=== PATIENT | male | born 1980 | race Caucasian/White ===

== ENCOUNTER → 2017-03-25 | Outpatient (CLI) | payer MEDICAID, OTHER ==
--- NOTE | 2017-03-25 09:54 | REP ---
LUMBAR SPINE, FIVE VIEWS: HISTORY: Back pain. There is no acute fracture or subluxation. The L2-3 through L5-S1 intervertebral discs are decreased in height consistent with disc degeneration. Osteophytes are present on L2-4. The facet joints are normal in appearance. IMPRESSION: Degenerative change as described above. Signed by Aly Eaton MD 03/25/2017 10:04 A
== END ==
LOC: M RAD 07:58
PROVIDERS: ATTEND Physician Assistant Medical
DX: M54.5 Low back pain (principal)

== ENCOUNTER 2022-02-15 14:44 | Emergency (ER) | payer OTHER ==
[~2022-02-15] VITALS: Ht 182.9 cm; Wt 87.0 kg
[2022-02-15 16:22] VITALS: BP 165/104
[2022-02-15] MEDS ORDERED: BOOSTRIX/ADACEL VACCINE (DIPHTH/PERTUSS/ACELL/TETANUS) 0.5ML SYR IM ONE (17:25)
[2022-02-15] MEDS ORDERED: NORCO, ANEXSIA 5/325MG TABLET (HYDROcodone/ACETAMINOPHEN) PO ONE (17:40)
== END 2022-02-15 18:25 | disposition home or self-care (01) ==
LOC: M ED 14:44
DX: S40.211A Abrasion of right shoulder, initial encounter (principal); S40.212A Abrasion of left shoulder, initial encounter; M79.672 Pain in left foot; S50.812A Abrasion of left forearm, initial encounter; S80.212A Abrasion, left knee, initial encounter; V29.9XXA Motorcycle rider (driver) (passenger) injured in unspecified traffic accident, initial encounter; I10 Essential (primary) hypertension; Z23 Encounter for immunization

== ENCOUNTER 2022-07-15 21:59 | Emergency (ER) | payer OTHER ==
[~2022-07-15] VITALS: Ht 182.9 cm; Wt 91.3 kg
[2022-07-15] MEDS ORDERED: ISOVUE-370 76% 100ML VIAL As Ordered ONE (22:18)
[2022-07-15 22:34] LABS: BASO % 0.3 % (0.0-1.0); EOS # 0.2 10^3/uL (0.0-0.5); EOS % 1.4 % (0.0-3.0); HEMATOCRIT 44.7 % (42.0-52.0); HEMOGLOBIN 14.9 g/dl (13.5-17.5); LYMPH # 1.5 10^3/uL (1.5-5.0); LYMPH % 11.6 % (24.0-44.0); MEAN CORPUSCULAR HEMOGLOBIN 27.8 pg (27.0-33.0); MEAN CORPUSCULAR HGB CONC 33.3 g/dl (32.0-36.5); MEAN CORPUSCULAR VOLUME 83.4 fl (80.0-96.0); MONO # 0.6 10^3/uL (0.0-0.8); MONO % 4.9 % (2.0-8.0); NEUTROPHILS # 10.6 10^3/uL (1.5-8.5); NEUTROPHILS % 80.8 % (36.0-66.0); PLATELET COUNT, AUTOMATED 210 10^3/uL (150-450); RED BLOOD COUNT 5.36 10^6/uL (4.30-6.10); WHITE BLOOD COUNT 13.2 10^3/uL (4.0-10.0)
[2022-07-15 22:45] LABS: INR 1.05; PROTHROMBIN TIME 13.9 SECONDS (12.5-14.5)
[2022-07-15 23:04] LABS: CK-MB VALUE MASS 2.3 NG/ML (<3.6); ETHYL ALCOHOL (ETHANOL) 0.004 % (0.000-0.010); LIPASE 28 U/L (12-53)
[2022-07-15 23:05] LABS: RSV AMPLIFICATION NEGATIVE (NEGATIVE)
[2022-07-15 23:06] LABS: ALBUMIN 3.5 G/DL (3.2-5.2); ALKALINE PHOSPHATASE 84 U/L (46-116); ALT/SGPT 36 U/L (7.0-40); AMYLASE 39 U/L (30-118); AST/SGOT 33 U/L (<34); BILIRUBIN,DIRECT < 0.1 MG/DL (<0.4); BILIRUBIN,TOTAL 0.3 MG/DL (0.3-1.2); BLOOD UREA NITROGEN 16 MG/DL (9-23); CALCIUM LEVEL 9.1 MG/DL (8.5-10.1); CARBON DIOXIDE LEVEL 30 MMOL/L (20-31); CHLORIDE LEVEL 105 MMOL/L (98-107); CREATININE FOR GFR 1.05 MG/DL (0.70-1.30); GLOMERULAR FILTRATION RATE > 60.0 (>60); GLUCOSE, FASTING 103 MG/DL (60-100); POTASSIUM SERUM 3.9 MMOL/L (3.5-5.1); SODIUM LEVEL 142 MMOL/L (136-145); TOTAL PROTEIN 6.1 G/DL (5.7-8.2)
[2022-07-15 23:20] LABS: CPK CREATINE PHOSPHOKINASE 150 U/L (46-171); MB/CK RELATIVE INDEX 1.53 (< OR =4)
[2022-07-15] MEDS ORDERED: DERMABOND TOPICAL SKIN ADHESIVE TOP ONE (23:55)
[2022-07-15] MEDS ORDERED: KETOROLAC 30 MG/ML 1ML VIAL IV ONE (23:55)
[2022-07-16 00:17] LABS: APPEARANCE, URINE MANUAL CLEAR (CLEAR); BILIRUBIN, URINE MANUAL NEGATIVE (NEGATIVE); BLOOD URINE MANUAL TRACE (NEGATIVE); COLOR, URINE MANUAL YELLOW (YELLOW); GLUCOSE, URINE (UA) MANUAL NEGATIVE (NEGATIVE); KETONE, URINE MANUAL NEGATIVE (NEGATIVE); LEUKOCYTE ESTERASE, URINE MAN NEGATIVE (NEGATIVE); NITRITE, URINE MANUAL NEGATIVE (NEGATIVE); PH,URINE MAN 5.5 UNITS (5.0 - 7.0); PROTEIN, URINE MANUAL NEGATIVE (NEGATIVE); SPECIFIC GRAVITY,URINE MANUAL 1.025 (1.002-1.035); UROBILINOGEN, URINE MANUAL NORMAL (NORMAL)
[2022-07-16 00:28] LABS: RBC, URINE 15-20 /hpf (0-3); SQUAMOUS EPITHELIAL CELL URINE SMALL AMOUNT /hpf (SMALL AMT)
[2022-07-16 00:29] LABS: BACTERIA, URINE SMALL AMOUNT; HYALINE CAST, URINE 0-1 /lpf (0-1)
[2022-07-16 00:37] LABS: BARBITURATES URINE NEGATIVE (NEGATIVE); BENZODIAZEPINES URINE NEGATIVE (NEGATIVE); COCAINE METABOLITE URINE NEGATIVE (NEGATIVE); METHADONE URINE NEGATIVE (NEGATIVE); OPIATES URINE NEGATIVE (NEGATIVE); PHENCYCLIDINE URINE NEGATIVE (NEGATIVE)
[2022-07-16 00:38] LABS: AMPHETAMINES LEVEL URINE POSITIVE (NEGATIVE); CANNABINOIDS URINE POSITIVE (NEGATIVE)
[2022-07-16 01:45] VITALS: BP 150/88
[2022-07-16] MEDS ORDERED: KETO10TAB PO (01:55)
[2022-07-16] MEDS ORDERED: METH-1164 PO (01:55)
== END 2022-07-16 02:24 | disposition home or self-care (01) ==
LOC: EDBD 21:59 → M ED 21:59
DX: S06.0X0A Concussion without loss of consciousness, initial encounter (principal); S01.81XA Laceration without foreign body of other part of head, initial encounter; V48.0XXA Car driver injured in noncollision transport accident in nontraffic accident, initial encounter; I10 Essential (primary) hypertension; Z79.899 Other long term (current) drug therapy

== ENCOUNTER 2022-11-17 11:27 | Emergency (ER) | payer OTHER ==
[~2022-11-17] VITALS: Ht 182.9 cm; Wt 98.4 kg
[~2022-11-17 11:27] MED LIST: KETO10TAB PO; METH-1164 PO
[2022-11-17 14:48] VITALS: BP 174/110
[2022-11-17 15:23] LABS: GC DNA AMPLIFICATION NEGATIVE (NEGATIVE)
== END 2022-11-17 14:50 | disposition home or self-care (01) ==
LOC: M ED 11:27
DX: K40.31 Unilateral inguinal hernia, with obstruction, without gangrene, recurrent (principal); N50.812 Left testicular pain; I10 Essential (primary) hypertension; F17.200 Nicotine dependence, unspecified, uncomplicated

== ENCOUNTER → 2023-01-01 | Outpatient (REF) | payer OTHER ==
[2023-01-01 14:49] LABS: AMORPHOUS SEDIMENT MODERATE (NEGATIVE); APPEARANCE, URINE CLOUDY (CLEAR); BACTERIA, URINE AUTO NEGATIVE (NEGATIVE); BILIRUBIN, URINE AUTO NEGATIVE (NEGATIVE); BLOOD, URINE BLOOD NEGATIVE (NEGATIVE); COLOR, URINE YELLOW (YELLOW); GLUCOSE, URINE (UA) AUTO NEGATIVE (NEGATIVE); KETONE, URINE AUTO NEGATIVE (NEGATIVE); LEUKOCYTE ESTERASE, URINE AUTO NEGATIVE (NEGATIVE); NITRITE, URINE AUTO NEGATIVE (NEGATIVE); PROTEIN, URINE AUTO NEGATIVE (NEGATIVE); RBC, URINE AUTO 0 /HPF (0-3); SPECIFIC GRAVITY URINE AUTO 1.017 (1.002-1.035); SQUAMOUS EPITHELIAL CELL UR AU 0 /HPF (0-6); UROBILINOGEN, URINE AUTO 0.2 mg/dL (0.0-2.0); WBC, URINE AUTO 0 /HPF (0-3)
== END ==
LOC: M SMT 12:49
PROVIDERS: ATTEND Urology
DX: R31.29 Other microscopic hematuria (principal)

== ENCOUNTER 2023-04-02 09:58 | Emergency (ER) | payer OTHER ==
[~2023-04-02] VITALS: Ht 182.9 cm; Wt 87.0 kg
[2023-04-02 09:59] VITALS: BP 150/110; TEMP 98.6; O2SAT 100
== END 2023-04-02 14:07 | disposition left against medical advice (07) ==
LOC: M ED 09:58
DX: Z53.21 Procedure and treatment not carried out due to patient leaving prior to being seen by health care provider (principal)

== ENCOUNTER 2024-09-20 15:30 | Emergency (ER) | payer OTHER ==
[~2024-09-20] VITALS: Ht 182.9 cm; Wt 93.2 kg
[2024-09-20 16:04] LABS: BASO % 0.5 % (0.0-1.0); EOS # 0.2 10^3/uL (0.0-0.5); EOS % 2.6 % (0.0-3.0); HEMATOCRIT 48.8 % (42.0-52.0); HEMOGLOBIN 17.1 g/dl (13.5-17.5); LYMPH # 2.5 10^3/uL (1.5-5.0); MEAN CORPUSCULAR HEMOGLOBIN 28.5 pg (27.0-33.0); MEAN CORPUSCULAR VOLUME 81.2 fl (80.0-96.0); MONO # 0.4 10^3/uL (0.0-0.8); MONO % 5.5 % (2.0-8.0); NEUTROPHILS # 4.5 10^3/uL (1.5-8.5); NEUTROPHILS % 58.1 % (36.0-66.0); PLATELET COUNT, AUTOMATED 217 10^3/uL (150-450); RED BLOOD COUNT 6.01 10^6/uL (4.30-6.10); WHITE BLOOD COUNT 7.7 10^3/uL (4.0-10.0)
[2024-09-20 16:29] LABS: LIPASE 28 U/L (12-53)
[2024-09-20 16:30] LABS: ALBUMIN 3.8 G/DL (3.2-5.2); ALKALINE PHOSPHATASE 86 U/L (40-129); ALT/SGPT 89 U/L (7.0-40); AST/SGOT 48 U/L (<34); BILIRUBIN,DIRECT 0.1 MG/DL (<0.4); BILIRUBIN,TOTAL 0.5 MG/DL (0.3-1.2); BLOOD UREA NITROGEN 15 MG/DL (9-23); CARBON DIOXIDE LEVEL 30 MMOL/L (20-31); CHLORIDE LEVEL 101 MMOL/L (98-107); CK-MB VALUE MASS 1.4 NG/ML (<3.6); CREATININE FOR GFR 0.85 MG/DL (0.70-1.30); GLOMERULAR FILTRATION RATE > 60.0 (>60); GLUCOSE, FASTING 81 MG/DL (60-100); POTASSIUM SERUM 4.8 MMOL/L (3.5-5.1); SODIUM LEVEL 140 MMOL/L (136-145)
[2024-09-20 16:33] LABS: FREE T4 1.11 NG/DL (0.89-1.76)
[2024-09-20 16:43] LABS: CPK CREATINE PHOSPHOKINASE 100 U/L (46-171)
[2024-09-20] MEDS ORDERED: ISOVUE-370 76% 100ML VIAL As Ordered ONE (17:07)
[2024-09-20 17:44] LABS: CK-MB VALUE MASS 1.1 NG/ML (<3.6)
[2024-09-20 17:48] LABS: MB/CK RELATIVE INDEX 1.11 (< OR =4)
[2024-09-20] MEDS: KETOROLAC 30 MG/ML 1ML VIAL IV ONE (17:58)
[2024-09-20] MEDS ORDERED: KETO10TAB PO (18:21)
[2024-09-20 18:30] VITALS: BP 148/95
[2024-09-20 18:36] VITALS: TEMP 97.3; O2SAT 99
== END 2024-09-20 18:41 | disposition home or self-care (01) ==
LOC: EDBD 15:30 → M ED 15:30
DX: R07.89 Other chest pain (principal); R00.1 Bradycardia, unspecified; I10 Essential (primary) hypertension; Z79.899 Other long term (current) drug therapy
CPT/HCPCS: 70450; 71045; 71275; 80048; 80076; 82550; 82553; 83690; 84439; 84443; 84484; 85025; 93005; 93041; 93971; 94760; 96374; 99285; J1885; Q9967

== ENCOUNTER 2024-11-16 17:17 | Emergency (ER) | payer OTHER ==
[~2024-11-16] VITALS: Ht 182.9 cm; Wt 98.0 kg
[2024-11-16 17:24] VITALS: TEMP 97.9
[2024-11-16] MEDS ORDERED: NAPR-1404 PO (17:32)
[2024-11-16] MEDS ORDERED: LOSA100T46 PO (17:32)
[2024-11-16] MEDS: CHLORTHALIDONE 25 MG TAB PO ONE (18:09)
[2024-11-16] MEDS ORDERED: CHLO125TA PO (18:26)
[2024-11-16 18:44] VITALS: O2SAT 99
[2024-11-16 18:49] VITALS: BP 148/72
== END 2024-11-16 18:52 | disposition home or self-care (01) ==
LOC: M ED 17:17
DX: K40.91 Unilateral inguinal hernia, without obstruction or gangrene, recurrent (principal); I10 Essential (primary) hypertension; E78.5 Hyperlipidemia, unspecified; F19.10 Other psychoactive substance abuse, uncomplicated; F17.200 Nicotine dependence, unspecified, uncomplicated; F10.10 Alcohol abuse, uncomplicated; F32.A Depression, unspecified; F41.9 Anxiety disorder, unspecified; Z79.1 Long term (current) use of non-steroidal anti-inflammatories (NSAID); Z79.899 Other long term (current) drug therapy

== ENCOUNTER 2025-03-02 08:42 | Day surgery (SDC) | payer OTHER ==
[~2025-03-02] VITALS: Ht 182.9 cm; Wt 93.9 kg
[~2025-03-02 08:42] MED LIST changes: +ACETAMINOPHEN 1000MG/100ML IV BAG As Ordered ONE; +AMLO1TAB25; +CHLO125TA PO; +HYDR-3490; +KETOROLAC 30 MG/ML 1 ML VIAL As Ordered ONE; +LIDOCAINE 2% 100 MG/5 ML SDV (FOR ANES.) As Ordered ONE; +LOSA100T46 PO; +MIDAZOLAM INJ 2 MG/2 ML VIAL As Ordered ONE; +NAPR-1404 PO; +ONDANSETRON 4MG 2ML VIAL As Ordered ONE; +ROCURONIUM BROMIDE 50MG/5ML VIAL As Ordered ONE; +SUGAMMADEX SODIUM 500 MG/5 ML VIAL As Ordered ONE; +dexAMETHasone 4 MG/ML 1 ML VIAL As Ordered ONE
[2025-03-02] MEDS ORDERED: LR 1,000 ML IV SCH (09:20)
[2025-03-02] MEDS: ceFAZolin SOD 2 GM IV ONCE IV ONE (11:29)
[2025-03-02] MEDS ORDERED: MEPERIDINE 25 MG/ML 1 ML VIAL IV PRN (12:50)
[2025-03-02] MEDS ORDERED: ONDANSETRON 4MG 2ML VIAL IV PRN (12:50)
[2025-03-02 14:50] VITALS: BP 126/70; TEMP 96.8; O2SAT 97
== END 2025-03-02 15:25 | disposition home or self-care (01) ==
LOC: M SDC 08:42
PROVIDERS: ATTEND Surgery
DX: K40.90 Unilateral inguinal hernia, without obstruction or gangrene, not specified as recurrent (principal); I10 Essential (primary) hypertension; Z79.899 Other long term (current) drug therapy; F17.210 Nicotine dependence, cigarettes, uncomplicated
CPT/HCPCS: 49650; C1781; J0131; J0665; J0690; J1100; J1885; J2250; J2405; J3010; S2900

== ENCOUNTER 2025-06-19 09:11 | Observation (INO) | payer OTHER ==
[~2025-06-19] VITALS: Ht 182.9 cm; Wt 95.0 kg
[~2025-06-19 09:11] MED LIST changes: -ACETAMINOPHEN 1000MG/100ML IV BAG As Ordered ONE; -AMLO1TAB25; +AMLO1TAB25 PO; -KETOROLAC 30 MG/ML 1 ML VIAL As Ordered ONE; -LIDOCAINE 2% 100 MG/5 ML SDV (FOR ANES.) As Ordered ONE; -MIDAZOLAM INJ 2 MG/2 ML VIAL As Ordered ONE; -ONDANSETRON 4MG 2ML VIAL As Ordered ONE; -ROCURONIUM BROMIDE 50MG/5ML VIAL As Ordered ONE; -SUGAMMADEX SODIUM 500 MG/5 ML VIAL As Ordered ONE; -dexAMETHasone 4 MG/ML 1 ML VIAL As Ordered ONE
[2025-06-19] MEDS ORDERED: NALT50TA4 PO (09:19)
[2025-06-19] MEDS ORDERED: HYDR-3363 PO (09:19)
[2025-06-19 10:08] LABS: BASO # 0.0 10^3/uL (0.0-0.2); BASO % 0.4 % (0.0-1.0); EOS # 0.3 10^3/uL (0.0-0.5); EOS % 3.2 % (0.0-3.0); LYMPH # 1.8 10^3/uL (1.5-5.0); LYMPH % 18.1 % (24.0-44.0); MONO # 0.6 10^3/uL (0.0-0.8); MONO % 5.6 % (2.0-8.0); NEUTROPHILS # 7.4 10^3/uL (1.5-8.5); NEUTROPHILS % 72.5 % (36.0-66.0); PLATELET COUNT, AUTOMATED 207 10^3/uL (150-450)
[2025-06-19 10:19] LABS: C REACTIVE PROTEIN QUANTITATIV 2.27 MG/DL (<1.0)
[2025-06-19 10:20] LABS: ALT/SGPT 23 U/L (7.0-40); AST/SGOT 17 U/L (<34); CALCIUM LEVEL 9.0 MG/DL (8.5-10.1); CARBON DIOXIDE LEVEL 29 MMOL/L (20-31); CHLORIDE LEVEL 106 MMOL/L (98-107); CREATININE FOR GFR 0.82 MG/DL (0.70-1.30); GLOMERULAR FILTRATION RATE > 90.0 (>60); POTASSIUM SERUM 4.2 MMOL/L (3.5-5.1); SODIUM LEVEL 141 MMOL/L (136-145)
[2025-06-19] MEDS ORDERED: ISOVUE-370 76% 100 ML VIAL As Ordered ONE (11:43)
[2025-06-19] MEDS: ACETAMINOPHEN *IV* 1,000 MG in IV 1 EA IV ONE (11:55)
[2025-06-19] MEDS: IPRATROPIUM 0.5 MG/ALBUTEROL 2.5 MG INH SOL UD 3 ML NEB ONE (12:35)
[2025-06-19] MEDS ORDERED: HYDR-3490 PO (13:01)
[2025-06-19] MEDS: AMPICILLIN SOD/SULBACTAM SOD 3 GM in DEXTROSE 5% (D5W) MINI-BAG PLU 100 ML IV ONE (13:17)
[2025-06-19 14:04] VITALS: BP 137/92; TEMP 98.3; O2SAT 100
[2025-06-19] MEDS ORDERED: HOME MED LIST COMPLETE! XX SCH (14:15)
[2025-06-19] MEDS: KETOROLAC 30 MG/ML 1 ML VIAL IV PRN (14:24)
[2025-06-19] MEDS: CEPACOL LOZENGE PO PRN (18:09)
[2025-06-19 19:38] VITALS: BP 135/88; TEMP 98.5; O2SAT 96
[2025-06-19] MEDS: AMPICILLIN SOD/SULBACTAM SOD 3 GM in DEXTROSE 5% (D5W) MINI-BAG PLU 100 ML IV SCH (19:57)
[2025-06-19] MEDS: ACETAMINOPHEN 500 MG TAB PO PRN (20:19)
[2025-06-20 05:25] VITALS: BP 145/88; TEMP 98; O2SAT 98
[2025-06-20 06:32] LABS: PLATELET COUNT, AUTOMATED 202 10^3/uL (150-450)
[2025-06-20 06:37] LABS: CALCIUM LEVEL 8.2 MG/DL (8.5-10.1); CARBON DIOXIDE LEVEL 29 MMOL/L (20-31); CHLORIDE LEVEL 106 MMOL/L (98-107); CREATININE FOR GFR 0.80 MG/DL (0.70-1.30); GLOMERULAR FILTRATION RATE > 90.0 (>60); POTASSIUM SERUM 4.3 MMOL/L (3.5-5.1); SODIUM LEVEL 142 MMOL/L (136-145)
[2025-06-20] MEDS: ENOXAPARIN 40 MG/0.4 ML SYRINGE (J1650 PER 10MG) SC SCH (08:15)
[2025-06-20 11:56] VITALS: BP 137/87; TEMP 98.1; O2SAT 97
[2025-06-20 20:00] VITALS: BP 151/87; TEMP 98.2; O2SAT 95
[2025-06-21 03:38] VITALS: BP 152/90; TEMP 98; O2SAT 99
[2025-06-21 05:00] VITALS: BP 152/90; TEMP 98; O2SAT 99
[2025-06-21] MEDS ORDERED: PANT20TA6 PO (10:34)
[2025-06-21] MEDS ORDERED: BENZ1LOZ9 PO (10:34)
[2025-06-21] MEDS ORDERED: ACET-683 PO (10:34)
[2025-06-21] MEDS ORDERED: AMOX875T2 PO (10:34)
== END 2025-06-21 11:02 | disposition home or self-care (01) ==
LOC: M ED 11:41 → M ED INP 11:42 → M MS4PR 14:04
PROVIDERS: ADMIT Internal Medicine; ATTEND Internal Medicine
DX: J36 Peritonsillar abscess (principal); I10 Essential (primary) hypertension; F41.9 Anxiety disorder, unspecified; Z79.899 Other long term (current) drug therapy
CPT/HCPCS: 36415; 70491; 80048; 80076; 84145; 85025; 85027; 85652; 86140; 87040; 87880; 94640; 96365; 96367; 96372; 96374; 96375; 96376; 99284; J0134; J0295; J1650; J1885; Q9967